=== PATIENT | male | born 1955 | race Caucasian/White ===

== ENCOUNTER 2017-12-10 14:49 | Emergency (ER) | payer BC ==
--- NOTE | 2017-12-10 15:42 | EDPHY ---
H & P Stated Complaint: Urinary retention Time Seen by Provider: 12/10/17 15:35 HPI/ROS: CHIEF COMPLAINT: Urinary retention HISTORY OF PRESENT ILLNESS: The patient is referred to the emergency department from the [facility]. The patient has urinary retention. The patient recently was noted to have an elevated creatinine of 1.4. The patient currently takes Flomax. He had a abdominal ultrasound performed today which demonstrated urinary retention and bilateral hydronephrosis. They attempted to place a Melenderz catheter the [facility] and were unsuccessful. The patient is sent here for further evaluation. The patient denies any fever, flank pain or vomiting. Patient denies any chest pain, shortness of breath or palpitations. The patient does complain of moderate suprapubic fullness and pressure. REVIEW OF SYSTEMS: A comprehensive 10 point review of systems is otherwise negative aside from elements mentioned in the history of present illness. Source: Patient - Personal History Current Tetanus/Diphtheria Vaccine: Yes Tetanus Vaccine Date: 08-21-08 - Medical/Surgical History Hx Asthma: No Hx Chronic Respiratory Disease: No Hx Diabetes: No Hx Cardiac Disease: No Hx Renal Disease: No Hx Cirrhosis: No Hx Alcoholism: No Other PMH: urinary retention - Social History Smoking Status: Never smoked - Physical Exam Exam: General Appearance: Alert, no distress Eyes: Pupils equal and round no pallor or injection ENT, Mouth: Mucous membranes moist Respiratory: There are no retractions, lungs are clear to auscultation Cardiovascular: Regular rate and rhythm Gastrointestinal: Suprapubic fullness, suprapubic tenderness to palpation Neurological: A&O, normal motor function, normal sensory exam, normal cranial nerves Skin: Warm and dry, no rashes Musculoskeletal: Neck is supple nontender Extremities: symmetrical, full range of motion Psychiatric: Patient is oriented X 3, there is no agitation Constitutional: Initial Vital Signs Temperature (C) 36.8 C 12/10/17 15:21 Heart Rate 59 L 12/10/17 15:21 Respiratory Rate 18 12/10/17 15:21 Blood Pressure 159/93 H 12/10/17 15:21 O2 Sat (%) 96 12/10/17 15:21 O2 Delivery Mode Room Air Allergies/Adverse Reactions: No Known Allergies Allergy (Unverified 12/10/17 15:25) Home Medications: Medication Instructions Recorded Atorvastatin Calcium [Lipitor 10 10 mg PO HS 06/18/13 mg (*)] Felodipine [Plendil 5 MG (*)] 10 mg PO HS 09/03/12 Hydrochlorothiazide [HCTZ (*)] 25 mg PO DAILY 09/03/12 Lisinopril [Zestril 40 mg (*)] 40 mg PO HS 09/03/12 Methotrexate Sodium [Methotrexate] 20 mg PO HOGAN@0800 09/03/12 Levothyroxine [Synthroid 125 mcg 250 mcg PO DAILY06 06/24/13 (*)] Temazepam [Restoril 15 MG (*)] 15 mg PO HS PRN 06/24/13 Aspirin [Aspirin 325 mg (OTC)] 325 mg PO DAILY #21 tab 07/09/13 Docusate Sodium [Colace 100 MG (*)] 100 mg PO BID #0 cap 07/09/13 HYDROcodone/APAP 10/325 [[place] 1 - 2 tab PO Q6 PRN #0 tab 07/09/13 10/325 (*)] celeCOXIB [Celebrex (*)] 200 mg PO DAILY #0 cap 07/09/13 Medical Decision Making ED Course/Re-evaluation: Patient is unable to urinate. His bladder scan demonstrates a urinary volume of nearly [address] L[address] We were able to place a Melendrez catheter. I did review the patient's laboratory studies from several days ago. The patient's vital signs are stable following drainage of his bladder. He has no acute complaints. The patient will be discharged home with a Melendrez leg bag. He will follow up with Dr. Romero with Urology at the [facility]. Urinalysis demonstrates no evidence of an infection. Patient will be discharged home and continue his Flomax. He is given customary aftercare instructions and return precautions. Differential Diagnosis: Differential diagnosis considered includes urinary retention, BPH, dehydration, metabolic abnormality, prostatitis, renal failure - Data Points Laboratory Results: 12/10/17 16:35 Urine Color PALE YELLOW Urine Appearance CLEAR Urine pH 6.0 (5.0-7.5) Ur Specific [place] 1.006 (1.002-1.030) Urine Protein NEGATIVE (NEGATIVE) Urine Ketones NEGATIVE (NEGATIVE) Urine Blood 1+ H (NEGATIVE) Urine Nitrate NEGATIVE (NEGATIVE) Urine Bilirubin NEGATIVE (NEGATIVE) Urine Urobilinogen NEGATIVE EU EU (0.2-1.0) Ur Leukocyte Esterase NEGATIVE (NEGATIVE) Urine RBC 1-3 /hpf /hpf (0-3) Urine WBC 1-3 /hpf /hpf (0-3) Ur Epithelial Cells NONE SEEN /lpf /lpf (NONE-1+) Urine Glucose NEGATIVE (NEGATIVE) Medications Given: Discontinued Medications Lidocaine (Uroject Lidocaine 2% Jelly) 20 ml UR EDNOW ONE Stop: 12/10/17 15:46 Last Admin: 12/10/17 15:48 Dose: 20 ml Departure - Departure Disposition: Home, Routine, Self-Care Clinical Impression: Urinary retention, Renal insufficiency Condition: Good Instructions: Urinary Retention in Men (ED) Additional Instructions: 1. Please schedule a follow-up appointment with the urologist you have been referred to this week. The Melendrez catheter will remain in place until you see her. 2. Please continue your Flomax. 3. Return to the ED for any fever, vomiting, back pain, lightheadedness, dizziness or problems with your Melendrez catheter not draining. Referrals: Caridad Marquez MD [Medical Doctor] - As per Instructions
[2017-12-10] MEDS ORDERED: LIDOCAINE 2% JELLY 20 ML (UROJECT) ONE (15:43)
[2017-12-10] MEDS ORDERED: LIDOCAINE 2% JELLY 20 ML (UROJECT) UR ONE (15:45)
[2017-12-10 17:00] VITALS: BP 200/96
== END 2017-12-10 17:15 | disposition home or self-care (01) ==
PROC: 0T9B70Z Drainage of Bladder with Drainage Device, Via Natural or Artificial Opening (ICD-10-PCS; principal; 2017-12-10)
DX: R33.9 Retention of urine, unspecified (principal)